=== PATIENT | female | born 1960 | race Caucasian/White ===

== ENCOUNTER 2016-09-19 14:17 | Emergency (ER) | payer SELFPAY ==
[~2016-09-19 14:17] MED LIST: Sodium Chloride Irrig Solution 250 ML BOT ONE
[2016-09-19] MEDS ORDERED: Naproxen 500 MG TAB ONE (14:57)
[2016-09-19] MEDS ORDERED: Cephalexin 500 MG CAP ONE (14:57)
== END 2016-09-19 15:00 | disposition home or self-care (01) ==
LOC: MADERS 14:17
DX: S61.217A Laceration without foreign body of left little finger without damage to nail, initial encounter (principal); F17.200 Nicotine dependence, unspecified, uncomplicated; W27.8XXA Contact with other nonpowered hand tool, initial encounter; Y93.9 Activity, unspecified; Y92.69 Other specified industrial and construction area as the place of occurrence of the external cause; Y99.0 Civilian activity done for income or pay
CPT/HCPCS: 99282